=== PATIENT | female | born 1990 | race Caucasian/White ===

== ENCOUNTER 2024-11-12 15:59 | Emergency (ER) | payer BC ==
[~2024-11-12] VITALS: Ht 233.7 cm; Wt 62.8 kg
[2024-11-12] MEDS ORDERED: MORPHINE SULFATE 4 MG/ML VIAL IV PRN (17:00)
[2024-11-12] MEDS ORDERED: ondansetron HCL 4 MG/2 ML VIAL IV ONE (17:00)
--- OUTSIDE RECORDS SUMMARY | 2024-11-12 17:21 | XMS ---
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 Merrill has no Care Guidelines for this patient. Jaiden VISIT COUNT (12 MO.) [address] [facility] TOTAL 2 NOTE: Visits indicate total known visits. ED/C VISIT TRACKING (12 MO.) 11/12/2024 16:00 [facility] TYPE: Emergency COMPLAINT: - FLANK PAIN 11/12/2024 13:26 [facility] TYPE: Emergency COMPLAINT: - ABD PAIN DIAGNOSES: - ABD PAIN INPATIENT VISIT TRACKING (12 MO.) [facility]24 19[facility] DIAGNOSES: - Pelvic Pain [email or web address]
[2024-11-12 18:26] VITALS: BP 96/59
== END 2024-11-12 18:29 | disposition home or self-care (01) ==
LOC: ED 15:59
DX: R10.11 Right upper quadrant pain (principal)
CPT/HCPCS: 74176; 76705; 96374; 96375; 99284-25; J2270; J2405